=== PATIENT | female | born 1965 | race African-American/Black ===

== ENCOUNTER 2017-04-29 09:56 | Emergency (ER) | payer SELFPAY ==
[~2017-04-29] VITALS: Ht 157.5 cm; Wt 60.0 kg
[2017-04-29 09:58] VITALS: BP 177/86; PULSE 103; RESP 16; TEMP 98.6; O2SAT 100
--- NOTE | 2017-04-29 10:18 | PD ---
HPI Chief Complaint: Back/ Neck Pain or Injury Time Seen by Provider: 10:07 Travel History International Travel<30 days: No Contact w/Intl Traveler<30days: No Traveled to known affect area: No History of Present Illness HPI 52-year-old female presents to the emergency room for evaluation of left shoulder pain for the past one week. Patient denies trauma or injury. States it occasionally radiates to her left arm. Pain is worsened when she coughs or moves her arm certain ways. She has been taking ibuprofen without any relief in symptoms. 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 She denies chest pain, shortness of breath, or history of cardiac disease. Her mother had 2 heart attacks in her 80s. Father is of unknown causes. Patient denies any chronic medical conditions or daily medications. PFSH Past Medical History ?: Not LMP: 04/13/17 Social History Alcohol Use: Yes Tobacco Use: Yes Substance Use: Yes (marijuana) Allergies-Medications (Allergen,Severity, Reaction): Coded Allergies: No Known Allergies (Unverified , 04/29/17) Reported Meds & Prescriptions Reported Meds & Active Scripts Active Ibuprofen 600 Mg Tab 600 Mg PO Q8HR PRN Robaxin (Methocarbamol) 750 Mg Tab 750 Mg PO Q8HR Review of Systems Except as stated in HPI: all other systems reviewed are Neg Physical Exam Narrative GENERAL: Well-nourished, well-developed female in no acute distress. Afebrile. Ambulatory. SKIN: Focused skin assessment warm/dry. HEAD: Normocephalic. EYES: No scleral icterus. No injection or drainage. NECK: Supple, trachea midline. No JVD or lymphadenopathy. CARDIOVASCULAR: Regular rate and rhythm without murmurs, gallops, or rubs. RESPIRATORY: Breath sounds equal bilaterally. No accessory muscle use. MSK: Full range of motion of the left shoulder. Tenderness to palpation of the left trapezius muscle between the scapula and the clavicle. 2+ radial pulse in the left. BACK: Nontender without obvious deformity. No CVA tenderness. Data Data Last Documented VS Vital Signs Date Time Temp Pulse Resp B/P (MAP) Pulse Ox O2 Delivery O2 Flow Rate FiO2 04/29/17 09:58 98.6 103 16 177/86 (116) 100 Room Air Orders Orders Electrocardiogram (12/7/17 ) Chest, Pa & Lat (04/29/17 ) Ed Discharge Order (04/29/17 11:06) [facility] Medical Decision Making Medical Screen Exam Complete: Yes Emergency Medical Condition: Yes Medical Record Reviewed: Yes Differential Diagnosis Muscle strain, referred pain unlikely, pneumonia Narrative Course 52-year-old female presents to the emergency room for evaluation of left upper back/ shoulder pain for the past week. She denies trauma or injury. Denies any associated cardiac symptoms. Patient is well-appearing in the emergency room. Resting comfortably. In no distress. She does not appear to be in significant pain. Physical exam is reassuring. There is tenderness to palpation of the left trapezius muscle between the clavicle and scapula. Pain is worsened with range of motion of all arm. Left upper extremity is neurovascularly intact with 2+ radial pulse. EKG shows sinus rhythm with a rate of [address] changes. Chest x-ray is negative. This is muscle strain. Patient discharged with ibuprofen and Robaxin and told to follow-up with the PCP or return for worsening symptoms. She understands and agrees to plan. Diagnosis Primary Impression: Trapezius muscle strain Qualified Codes: S46.812A - Strain of other muscles, fascia and tendons at shoulder and upper arm level, left arm, initial encounter Referrals: Primary Care Physician Additional Instructions: Rest and drink plenty of fluids. Take Robaxin as directed, as needed for pain. Take ibuprofen with food as directed, as needed for pain. Apply ice to the affected area for 20 minutes at a time, as needed for pain and swelling. Follow-up with a primary care physician. Return to the emergency room for worsening symptoms. Med/Other Pt SpecificInfo: Prescription(s) given Scripts Ibuprofen (Ibuprofen) 600 Mg Tab 600 MG PO Q8HR Y for PAIN, #15 TAB 0 Refills Prov: Preethi Mack MD 04/29/17 Methocarbamol (Robaxin) 750 Mg Tab 750 MG PO Q8HR for Muscle Spasm, #12 TAB 0 Refills Prov: Preethi Mack MD 04/29/17 Disposition: 01 DISCHARGE HOME Condition: Stable Janae Mayes Apr 29, 2017 10:18
[2017-04-29] MEDS ORDERED: IBUP-232 PO (10:45)
[2017-04-29] MEDS ORDERED: ROBA750T PO (10:45)
--- NOTE | 2017-04-29 11:04 | RADRPT ---
EXAM DATE/TIME: 04/29/2017 10:38 [place] COMPARISON: No previous studies available for comparison. INDICATIONS : Chest pain, shortness of breath. MEDICAL HISTORY : Hypertension. Smoker. SURGICAL HISTORY : None. ENCOUNTER: Initial ACUITY: 1 week PAIN SCORE: 9/10 LOCATION: Left posterior chest. FINDINGS: PA and lateral views of the chest demonstrate a normal-sized cardiac silhouette. There is no effusion , consolidation, or pneumothorax. The bones and soft tissues demonstrate no acute abnormality. CONCLUSION: No acute cardiopulmonary abnormality is identified. Jose Hendrix MD on April 29, 2017 at 11:01 Board Certified Radiologist. This report was verified electronically.
--- NOTE | 2017-04-29 15:57 | EKG ---
Date Performed: 04/29/2017 Time Performed: 10:23:23 PTAGE: 52 years EKG: Sinus rhythm POSSIBLE LEFT ATRIAL ENLARGEMENT BORDERLINE ECG NO PREVIOUS TRACING DOCTOR: Mc Mello Interpretating Date/Time 04/29/2017 15:57:03
== END 2017-04-29 11:17 | disposition home or self-care (01) ==
LOC: NEPK 09:56
DX: S46.912A Strain of unspecified muscle, fascia and tendon at shoulder and upper arm level, left arm, initial encounter (principal); R94.31 Abnormal electrocardiogram [ECG] [EKG]
CPT/HCPCS: 71020; 93005; 99284